=== PATIENT | female | born 1960 | race Asian ===

== ENCOUNTER 2018-06-02 21:31 | Emergency (ER) | payer OTHER ==
[~2018-06-02] VITALS: Ht 149.9 cm; Wt 74.8 kg
[2018-06-02] MEDS ORDERED: NORVASC2.5 M1 PO (21:58)
[2018-06-02 21:59] LABS: URINE BILIRUBIN NEGATIVE (Negative); URINE BLOOD NEGATIVE (Negative); URINE CLARITY CLEAR; URINE COLOR STRAW; URINE GLUCOSE-RANDOM 3+ (Negative); URINE KETONES NEGATIVE (Negative); URINE LEUKOCYTES-REFLEX NEGATIVE (Negative); URINE NITRITE-REFLEX NEGATIVE (Negative); URINE PROTEIN NEGATIVE (Negative); URINE UROBILINOGEN 0.2 E.U./dl (0.2-1.0)
[2018-06-02] MEDS ORDERED: CRESTOR10 MG PO (21:59)
[2018-06-02] MEDS ORDERED: PLAVIX 75 MG TA75 M1 PO (21:59)
[2018-06-02] MEDS ORDERED: PAXIL10 MG PO (22:00)
[2018-06-02] MEDS ORDERED: METFORMIN HCL500 MG PO (22:00)
[2018-06-02] MEDS ORDERED: PANTOPRAZOLE SO40 M1 PO (22:01)
[2018-06-02 22:27] LABS: HEMATOCRIT 29.1 % (37.0-47.0); MCHC 30.9 g/dL (28.0-37.0); MCV 71.2 fL (80.0-100.0); MPV 8.5 fl. (7.2-11.1); NUCLEATED RBCS 0 /100WBC; PLATELET COUNT* 376 thou/uL (150-400); RBC 4.08 mil/uL (4.20-5.00); RDW-CV 15.3 % (10.5-14.5); WBC 7.3 thou/uL (4.0-11.0)
[2018-06-02 22:33] LABS: CREATININE 0.9 mg/dL (0.6-1.3); POTASSIUM 4.2 mmol/L (3.5-5.1)
[2018-06-02 22:34] LABS: ABSOLUTE LYMPHOCYTES 1.8 thou/uL (0.8-5.3); ABSOLUTE MONOCYTES 0.4 thou/uL (0.0-1.2); ABSOLUTE NEUTROPHILS 4.9 thou/uL (1.6-8.1); LYMPHOCYTES 25.2 %; MONOCYTES 5.9 %; POLYS 66.8 %
[2018-06-02 22:35] LABS: ABSOLUTE BASOPHILS 0.1 thou/uL (0.0-0.2); ABSOLUTE EOSINOPHILS 0.1 thou/uL (0.0-0.7); EOSINOPHILS 1.1 %
[2018-06-02 22:37] LABS: ALBUMIN 3.7 g/dL (3.4-5.0); TOTAL BILIRUBIN 0.2 mg/dL (<0.1-1.0); TOTAL PROTEIN 7.9 g/dL (6.4-8.2)
[2018-06-02 23:08] LABS: ANISOCYTOSIS 1+; HYPOCHROMASIA 2+; MICROCYTES 1+; POLYCHROMASIA Occasional
[2018-06-03] MEDS ORDERED: NORCO 7.5-3251 EACH PO (00:05)
[2018-06-03 00:24] VITALS: BP 170/88
[2018-06-03] MEDS ORDERED: KEFLEX500 M1 PO (20:40)
[2018-06-03] MEDS ORDERED: GLUCOTROL5 MG PO (20:49)
[2018-06-03] MEDS ORDERED: TRAMADOL 50 MG50 MG PO (20:50)
[2018-06-03] MEDS ORDERED: ZOFRAN ODT4 MG PO (20:50)
== END 2018-06-03 00:30 | disposition home or self-care (01) ==
LOC: M.ERS 21:31
PROVIDERS: Emergency Medicine
DX: K31.89 Other diseases of stomach and duodenum (principal); E11.9 Type 2 diabetes mellitus without complications; Z95.5 Presence of coronary angioplasty implant and graft; Z88.2 Allergy status to sulfonamides

== ENCOUNTER 2018-06-03 17:51 | Emergency (ER) | payer OTHER ==
[~2018-06-03] VITALS: Ht 149.9 cm; Wt 79.4 kg
[~2018-06-03 17:51] MED LIST: CRESTOR10 MG PO; METFORMIN HCL500 MG PO; NORCO 7.5-3251 EACH PO; NORVASC2.5 M1 PO; PANTOPRAZOLE SO40 M1 PO; PAXIL10 MG PO; PLAVIX 75 MG TA75 M1 PO
[2018-06-03 18:34] LABS: ABSOLUTE BASOPHILS 0.1 thou/uL (0.0-0.2); ABSOLUTE LYMPHOCYTES 1.5 thou/uL (0.8-5.3); ABSOLUTE MONOCYTES 0.4 thou/uL (0.0-1.2); ABSOLUTE NEUTROPHILS 4.6 thou/uL (1.6-8.1); BASOPHILS 1.2 %; EOSINOPHILS 0.5 %; HEMATOCRIT 28.9 % (37.0-47.0); MCH 22.3 pg (26.0-34.0); MCHC 31.1 g/dL (28.0-37.0); MCV 71.6 fL (80.0-100.0); MONOCYTES 6.2 %; MPV 8.2 fl. (7.2-11.1); NUCLEATED RBCS 0 /100WBC; PLATELET COUNT* 352 thou/uL (150-400); POLYS 69.1 %; RBC 4.03 mil/uL (4.20-5.00); RDW-CV 15.1 % (10.5-14.5); WBC 6.7 thou/uL (4.0-11.0)
[2018-06-03 18:40] LABS: ANION GAP 8 mmol/L (7-16); BUN 9 mg/dL (7-18); CALCIUM 9.1 mg/dL (8.5-10.1); CHLORIDE 98 mmol/L (98-107); CO2 30 mmol/L (21-32); CREATININE 0.9 mg/dL (0.6-1.3); GLUCOSE 327 mg/dL (70-99); POTASSIUM 4.2 mmol/L (3.5-5.1); SODIUM 136 mmol/L (136-145)
[2018-06-03 18:48] LABS: ALBUMIN 3.8 g/dL (3.4-5.0); ALKALINE PHOSPHATASE 88 U/L (46-116); SGOT 13 U/L (15-37); SGPT 17 U/L (30-65); TOTAL BILIRUBIN 0.2 mg/dL (<0.1-1.0); TROPONIN-I LEVEL <0.06 ng/mL (<0.06)
[2018-06-03 18:52] LABS: ANISOCYTOSIS 1+; HYPOCHROMASIA 1+; MICROCYTES 1+; PLATELET ESTIMATE ADEQUATE
[2018-06-03 19:01] LABS: URINE BILIRUBIN NEGATIVE (Negative); URINE BLOOD NEGATIVE (Negative); URINE CLARITY CLEAR; URINE COLOR YELLOW; URINE GLUCOSE-RANDOM 3+ (Negative); URINE KETONES NEGATIVE (Negative); URINE LEUKOCYTES-REFLEX NEGATIVE (Negative); URINE NITRITE-REFLEX NEGATIVE (Negative); URINE PROTEIN NEGATIVE (Negative); URINE UROBILINOGEN 0.2 E.U./dl (0.2-1.0)
[2018-06-03] MEDS ORDERED: KEFLEX500 M1 PO (20:40)
[2018-06-03] MEDS ORDERED: GLUCOTROL5 MG PO (20:49)
[2018-06-03] MEDS ORDERED: TRAMADOL 50 MG50 MG PO (20:50)
[2018-06-03] MEDS ORDERED: ZOFRAN ODT4 MG PO (20:50)
[2018-06-03 21:09] VITALS: BP 147/78
--- NOTE | 2018-06-04 10:20 | EKG ---
[place] [address] ELECTROCARDIOGRAM REPORT Name: YANET WESTFALL Room: [facility] [place]#: [id number] Admission: 06/03/18 Attend Phys: Discharge: 06/03/18 Date of : 64 Report #: [id number] THIS REPORT FOR: //name// [facility] ED Test Date: 2018-06-03 Test Time: 18:56:59 Pat Name: YANET WESTFALL Department: Room: Gender: F Measurer Machine: CAROLYN : 1960 Requested By: Efren Patterson Order Number: [id number] MD: Abhi Loco Measurements Intervals [place] Rate: 82 P: 55 MS: 170 QRS: 27 QRSD: 80 T: 82 QT: 400 QTc: 468 Interpretive Statements Sinus rhythm No previous ECG available for comparison Electronically Signed On 06-04-2018 10:19:46 CDT by Abhi Loco [email or web address] <ELECTRONICALLY SIGNED> By: Abhi Loco MD, [facility] 06/04/18 1019 1856 1856 Abhi Loco MD, FACC /EPI
== END 2018-06-03 21:11 | disposition home or self-care (01) ==
LOC: M.ERS 17:51
PROVIDERS: Emergency Medicine Emergency Medical Services
DX: E11.65 Type 2 diabetes mellitus with hyperglycemia (principal); R11.0 Nausea; Z95.5 Presence of coronary angioplasty implant and graft

== ENCOUNTER 2018-06-12 00:04 | Emergency (ER) | payer OTHER ==
[~2018-06-12] VITALS: Ht 149.9 cm; Wt 75.0 kg
[~2018-06-12 00:04] MED LIST changes: +GLUCOTROL5 MG PO; +KEFLEX500 M1 PO; +TRAMADOL 50 MG50 MG PO; +ZOFRAN ODT4 MG PO
[2018-06-12 00:23] VITALS: BP 165/82
[2018-06-12 00:37] LABS: ABSOLUTE BASOPHILS 0.1 thou/uL (0.0-0.2); ABSOLUTE MONOCYTES 0.4 thou/uL (0.0-1.2); ABSOLUTE NEUTROPHILS 3.9 thou/uL (1.6-8.1); EOSINOPHILS 0.5 %; HEMATOCRIT 26.7 % (37.0-47.0); HEMOGLOBIN 8.2 gm/dL (12.0-15.0); LYMPHOCYTES 31.3 %; MCH 21.8 pg (26.0-34.0); MCHC 30.8 g/dL (28.0-37.0); MCV 70.7 fL (80.0-100.0); MONOCYTES 5.8 %; MPV 8.6 fl. (7.2-11.1); NUCLEATED RBCS 0 /100WBC; PLATELET COUNT* 280 thou/uL (150-400); POLYS 61.4 %; RBC 3.77 mil/uL (4.20-5.00); RDW-CV 15.6 % (10.5-14.5); WBC 6.4 thou/uL (4.0-11.0)
[2018-06-12 00:46] LABS: ANION GAP 6 mmol/L (7-16); BUN 12 mg/dL (7-18); CALCIUM 8.9 mg/dL (8.5-10.1); CHLORIDE 105 mmol/L (98-107); CO2 26 mmol/L (21-32); CREATININE 0.9 mg/dL (0.6-1.3); GLUCOSE 330 mg/dL (70-99); POTASSIUM 4.1 mmol/L (3.5-5.1); SODIUM 137 mmol/L (136-145)
[2018-06-12 00:58] LABS: ALBUMIN 3.2 g/dL (3.4-5.0); ALKALINE PHOSPHATASE 78 U/L (46-116); LIPASE 304 U/L (73-393); MAGNESIUM 1.6 mg/dL (1.8-2.4); NT-PRO BRAIN NAT PEPTIDE 59 pg/mL (<300); SGOT 9 U/L (15-37); SGPT 13 U/L (30-65); TOTAL BILIRUBIN 0.1 mg/dL (<0.1-1.0); TOTAL PROTEIN 7.1 g/dL (6.4-8.2); TROPONIN-I LEVEL <0.06 ng/mL (<0.06)
[2018-06-12 03:06] VITALS: BP 154/78
[2018-06-12 04:11] LABS: ANISOCYTOSIS 2+; HYPOCHROMASIA 2+; MICROCYTES 1+; POLYCHROMASIA 1+
--- NOTE | 2018-06-12 12:10 | EKG ---
[place] [address] ELECTROCARDIOGRAM REPORT Name: YANET WESTFALL Room: [place] [address] ADM IN .R.#: [id number] Admission: 06/12/18 Attend Phys: Shady Alba Discharge: Date of : 64 Report #: [id number] THIS REPORT FOR: //name// [facility] ED Test Date: 2018-06-12 Test Time: 00:17:49 Pat Name: YANET WESTFALL Department: Room: Gender: F Drafter Heating [employer] Ventilating: zayda brennan : 1960 Requested By: Efren Patterson Order Number: [id number] MD: Abhi Loco Measurements Intervals [place] Rate: 77 P: 49 [place]: 155 QRS: 23 QRSD: 80 T: 91 QT: 376 QTc: 426 Interpretive Statements Sinus rhythm Nonspecific T abnormalities, lateral leads Compared to ECG 06/03/2018 18:56:59 no change Electronically Signed On 06-12-2018 12:10:39 CDT by Abhi Loco [email or web address] <ELECTRONICALLY SIGNED> By: Abhi Loco MD, [facility] 06/12/18 1210 0017 0017 Abhi Loco MD, [facility] /EPI
== END 2018-06-12 02:55 | disposition left against medical advice (07) ==
LOC: M.ERS 00:04 → M.TBA-ER 02:55 → M.ERS 02:55 → M.TBA-ER 03:49 → M.ERS 03:49 → M.TBA-ER 05:58
PROVIDERS: Emergency Medicine Emergency Medical Services
DX: R07.9 Chest pain, unspecified (principal); E11.9 Type 2 diabetes mellitus without complications; Z95.5 Presence of coronary angioplasty implant and graft; Z88.2 Allergy status to sulfonamides

== ENCOUNTER 2018-06-12 13:43 | Inpatient (IN) | payer OTHER ==
[~2018-06-12] VITALS: Ht 149.9 cm; Wt 76.2 kg
[2018-06-12 13:48] VITALS: BP 142/72
[2018-06-12 14:52] LABS: ABSOLUTE BASOPHILS 0.1 thou/uL (0.0-0.2); ABSOLUTE EOSINOPHILS 0.1 thou/uL (0.0-0.7); ABSOLUTE LYMPHOCYTES 1.7 thou/uL (0.8-5.3); ABSOLUTE MONOCYTES 0.3 thou/uL (0.0-1.2); ABSOLUTE NEUTROPHILS 4.1 thou/uL (1.6-8.1); BASOPHILS 1.1 %; EOSINOPHILS 0.8 %; HEMATOCRIT 26.4 % (37.0-47.0); HEMOGLOBIN 8.3 gm/dL (12.0-15.0); MCH 22.4 pg (26.0-34.0); MCHC 31.6 g/dL (28.0-37.0); MCV 70.8 fL (80.0-100.0); MONOCYTES 5.5 %; MPV 9.3 fl. (7.2-11.1); NUCLEATED RBCS 0 /100WBC; PLATELET COUNT* 297 thou/uL (150-400); POLYS 65.6 %; RBC 3.73 mil/uL (4.20-5.00); RDW-CV 15.5 % (10.5-14.5); WBC 6.3 thou/uL (4.0-11.0)
[2018-06-12 14:54] LABS: URINE BILIRUBIN NEGATIVE (Negative); URINE BLOOD NEGATIVE (Negative); URINE CLARITY CLEAR; URINE COLOR YELLOW; URINE GLUCOSE-RANDOM NEGATIVE (Negative); URINE KETONES NEGATIVE (Negative); URINE LEUKOCYTES-REFLEX NEGATIVE (Negative); URINE NITRITE-REFLEX NEGATIVE (Negative); URINE PROTEIN NEGATIVE (Negative); URINE SPECIFIC GRAVITY 1.015 (1.005-1.030); URINE UROBILINOGEN 0.2 E.U./dl (0.2-1.0)
[2018-06-12 14:57] LABS: CREATININE 0.8 mg/dL (0.6-1.3); POTASSIUM 3.9 mmol/L (3.5-5.1)
[2018-06-12 15:02] LABS: ALBUMIN 3.2 g/dL (3.4-5.0); TOTAL BILIRUBIN 0.2 mg/dL (<0.1-1.0); TOTAL PROTEIN 7.1 g/dL (6.4-8.2)
[2018-06-12 15:36] LABS: APTT 24.7 Seconds (25.0-31.3); PROTIME 10.4 Seconds (9.20-11.50)
[2018-06-12 15:41] LABS: ANISOCYTOSIS 1+; HYPOCHROMASIA 2+; LARGE PLATELETS FEW; PLATELET ESTIMATE ADEQUATE
[2018-06-12 15:42] LABS: MICROCYTES 1+
--- NOTE | 2018-06-12 16:19 | NUR ---
PER DIRECTOR DIGITAL ADVERTISING, PICC NURSE DANNY RN, IS TO START IV WHEN PT ARRIVES TO FLOOR. PT GOING TO ROOM 308. PT STUCK MULTIPLE TIMES IN ED. UNABLE TO OBTAIN IV ACCESS AT THIS TIME.
[2018-06-12 16:48] LABS: % SATURATION 6 % (20-39); IRON 29 ug/dL (50-175)
[2018-06-12 17:11] VITALS: BP 125/63
[2018-06-12 17:34] VITALS: BP 150/80
--- NOTE | 2018-06-12 18:16 | NUR ---
PATIENT HAS BEEN ALERT AND ORINETED TODAY VERY PLEASANT. UP AD HUBERT IN ROOM. APPETITE HAS BEEN GOOD TODAY WITH NO COMPLAINTS OF PAIN. VITAL SIGNS HAVE BEEN ON ROOM AIR, PROVIDER AWARE AND ADJUSTED BLOOD PRESSURE MEDS. CALL LIGHT IS IN REACH, WILL CONTINUE TO MONITOR.
--- NOTE | 2018-06-12 18:25 | NUR ---
PATIENT CAME TO THE ER VIA CART IN STABLE CONDITION. VITAL SIGNS STABLE ON ROOM AIR. PATIENT IS VERY CONCERNED ABOUT DAUGHTER, ALSO A PATIENT, TO WHAT WILL HAPPEN WHEN DAUGHTER IS DISCHARGED. EXPLAINED TO PATIENT THAT PROBLEM WOULD BE DEALT AT THE TIME OF DISCHARGE TO TRY AND EASE SOME ANXIETY. ROOM ORIENTATION AND ADMISSION ASSESSMENT DONE, QUESTIONS ANSWERED FOR PATIENT.
[2018-06-12 20:30] VITALS: BP 143/62
[2018-06-13 04:49] LABS: HEMATOCRIT 26.2 % (37.0-47.0); HEMOGLOBIN 8.2 gm/dL (12.0-15.0); MCH 22.1 pg (26.0-34.0); MCHC 31.2 g/dL (28.0-37.0); MCV 70.9 fL (80.0-100.0); MPV 9.2 fl. (7.2-11.1); RBC 3.7 mil/uL (4.20-5.00); RDW-CV 15.8 % (10.5-14.5); WBC 6.4 thou/uL (4.0-11.0)
[2018-06-13 05:33] LABS: ALBUMIN 3.2 g/dL (3.4-5.0); CALCIUM 8.8 mg/dL (8.5-10.1); CREATININE 0.8 mg/dL (0.6-1.3); MAGNESIUM 1.8 mg/dL (1.8-2.4); POTASSIUM 4.2 mmol/L (3.5-5.1); TOTAL PROTEIN 6.6 g/dL (6.4-8.2)
[2018-06-13 05:56] LABS: TOTAL BILIRUBIN 0.1 mg/dL (<0.1-1.0)
--- NOTE | 2018-06-13 06:13 | NUR ---
PATIENT SLEPT MOST OF THE NIGHT. IV FLUIDS CONTINUE TO INFUSE AT 100 ML/HR. PATIENT HAD NO COMPLAINTS OF PAIN OR NAUSEA. PATIENT HAS BEEN NPO SINCE MIDNIGHT FOR EGD TODAY. WILL CONTINUE TO MONITOR.
[2018-06-13 08:40] VITALS: BP 143/62
[2018-06-13 08:45] VITALS: BP 137/63; BP 143/62
--- NOTE | 2018-06-13 12:45 | NUR ---
PATIENT ARRIVED BACK TO UNIT FROM PACU AT 1120. ALERT AND ORIENTED X 4. VITAL SIGNS STABLE ON ROOM AIR. IV PATENT AND SALINE LOCKED. PATIENT RESTING COMFORTABLY. CALL LIGHT WITHIN REACH. NURSING WILL CONTINUE TO MONITOR.
[2018-06-13 16:16] VITALS: BP 148/76
--- NOTE | 2018-06-13 17:37 | NUR ---
PATIENT ALERT AND ORIENTED X 4. VITAL SIGNS STABLE ON ROOM AIR. AFEBRILE. UP INDEPENDENTLY AND AMBULATING IN HALLWAY. IV PATENT WITH FLUIDS INFUSING. DENIES PAIN AND NAUSEA. TOLERATING HEART HEALTHY VEGETARIAN DIET. HOURLY ROUNDS MAINTAINED THROUGHOUT THE SHIFT. CALL LIGHT WITHIN REACH. NURSING WILL CONTINUE TO MONITOR.
[2018-06-14] VITALS: BP 144/69
--- NOTE | 2018-06-14 06:23 | NUR ---
PATIENT SLEPT MOST OF THE NIGHT. PATIENT WAS GIVEN FENTANYL FOR PAIN ONCE. PATIENT BECAME VERY DIZZY, NAUSEATED, AND SWEATY AFTERWARDS. PATIENT STATED SHE DID NOT WANT THAT MEDICINE AGAIN. PATIENT IS POSSIBLY GOING HOME TODAY. WILL CONTINUE TO MONITOR.
[2018-06-14 07:30] VITALS: BP 152/88
[2018-06-14 07:38] LABS: ABSOLUTE BASOPHILS 0.1 thou/uL (0.0-0.2); ABSOLUTE EOSINOPHILS 0.1 thou/uL (0.0-0.7); ABSOLUTE LYMPHOCYTES 1.6 thou/uL (0.8-5.3); ABSOLUTE MONOCYTES 0.3 thou/uL (0.0-1.2); ABSOLUTE NEUTROPHILS 3.5 thou/uL (1.6-8.1); BASOPHILS 1.1 %; HEMATOCRIT 28.4 % (37.0-47.0); HEMOGLOBIN 8.8 gm/dL (12.0-15.0); LYMPHOCYTES 29.3 %; MCH 21.9 pg (26.0-34.0); MCV 70.6 fL (80.0-100.0); MONOCYTES 6.1 %; MPV 8.3 fl. (7.2-11.1); NUCLEATED RBCS 0 /100WBC; PLATELET COUNT* 304 thou/uL (150-400); POLYS 62.5 %; RBC 4.02 mil/uL (4.20-5.00); RDW-CV 15.9 % (10.5-14.5); WBC 5.5 thou/uL (4.0-11.0)
[2018-06-14 07:44] LABS: CALCIUM 8.6 mg/dL (8.5-10.1); CREATININE 0.8 mg/dL (0.6-1.3); POTASSIUM 3.8 mmol/L (3.5-5.1)
[2018-06-14 09:15] LABS: PLATELET ESTIMATE ADEQUATE
[2018-06-14 09:16] LABS: HYPOCHROMASIA 1+; MICROCYTES 1+
[2018-06-14 09:17] LABS: ANISOCYTOSIS 1+; POIKILOCYTOSIS 1+
[2018-06-14 14:11] VITALS: BP 152/88
--- NOTE | 2018-06-14 15:00 | NUR ---
SW met with pt to complete assessment and discuss dc planning. Pt alert, oriented, visiting with her dtr. Pt plans to dc home today with dtr and does not express any dc needs or concerns.
--- NOTE | 2018-06-14 15:04 | NUR ---
PATIENT HAS BEEN ALERT AND ORIENTED TODAY, PLEASANT BUT ANXIOUS. STAYING IN DAUGHTERS ROOM TODAY. EXPLAINED THAT AFTER BEING DISCHARGED PATIENT COULD STAY WITH DAUGHTER IN 309. PATIENT CLEANED OUT BELONGINGS FROM ROOM AND HAS BEEN IN 309 SINCE THEN. DISCHARGE INSTRUCTIONS GIVEN AND QUESTIONS ANSWERED FOR PATIENT AND FAMILY. PATIENT IS IN WITH DAUGHTER WHO IS A PATIENT IN 309.
[2018-06-14 15:12] VITALS: BP 152/88
--- NOTE | 2018-06-25 09:08 | PATH ---
[address] [address] PATHOLOGY RPT PROCEDURE Name: CALVIN WESTFALLAVI Room: [address] IN M.R.#: [id number] Admission: 06/12/18 Date of : 64 Discharge: 06/14/18 Report #: [id number] Path Case #: [id number] [facility] Accession Number: [id number] . 01 Material submitted: . PART A: BIOPSY ULCERATED TUMOR MID BODY POSTERIOR WALL PART B: ANTRAL BIOPSY FOR H PYLORI . 01 Clinical history: . Preop DX: Anemia, abnormal CAT scan, abdominal pain Postop DX: Ulcerated mass mid body, posterior wall stomach . 02 Diagnosis: A. 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 . B. Antral biopsy for H. pylori: - Moderate chronic antral gastritis with few Helicobacter pylori organisms identified, negative for malignancy/dysplasia. [facility]/06/16/2018 . 02 Comment: HER2 assessment is pending on specimen A and will be the subject of an addendum report. Dr. Shin notified at approximately 1205 on 06/16/2018. Specimen A reviewed with Dr. Patrick Horton who agrees with the diagnosis. . (JENNIFER:pit 06/16/2018) . 02 Addendum: . Special studies report received from [facility], [address] [place] [address], [address], [place], [address], on case [id number], labeled with their number [id number], dated 06/21/2018. . Gastroesophageal Adenocarcinoma HER2 IHC Analysis . Specimen Site: Stomach, Adenocarcinoma, mid body posterior wall (biopsy) Specimen ID #: [id number] . HERCEPTEST (Gastric) Equivocal Score: 2+ Analysis: Manual . Time to Fixation (Cold Ischemic Time): Not Provided Duration of Fixation: Not Provided Type of Fixative: 10% [place] [address] PATHOLOGY RPT PROCEDURE Name: YANET WESTFALL Room: [address] DIS IN M.R.#: [id number] Admission: 06/12/18 Date of : 64 Discharge: 06/14/18 Report #: [id number] Path Case #: [id number] . Comments: Additional studies: Reflex HER2 by FISH will be reported separately. . . at [facility] Mandy Diggs M.D. Pathologist . Methodology: The HercepTest contains reagents required to complete a two-step immunocytochemical staining procedure for routinely processed, paraffin-embedded specimens. Following incubation with the primary rabbit antibody to human HER2 protein, this kit employs a zyels-qi-oyk Visualization Reagent based on dextran technology. This reagent consists of both secondary and goat anti-rabbit immunoglobulin molecules and horseradish peroxidase molecules linked to a common dextran polymer backbone. The enzymatic conversion of the subsequently added chromogen results in formation of a visible reaction product at the antigen site. The antibody is intended for in-vitro diagnostic use. . Intended Use: The HercepTest (DAKO) is a semi-quantitative immunocytochemical FDA-cleared assay to determine HER2 protein expression in formalin-fixed, paraffin embedded cancer tissue from patients with metastatic gastric or gastroesophageal junction adenocarcinoma. HercepTest is indicated as an aid in the assessment of gastric cancer patients for whom Herceptin (trastuzumab) treatment is being considered. Reference ranges for this test in cancer types other than gastrointestinal adenocarcinoma or breast carcinoma are not approved at this time. . . Disclaimer: This Test was performed by [employer]. at [address] [place] [address], [place]. . [facility] is a business unit of [employer]. a wholly-owned subsidiary of [employer]. . This assay has not been validated on decalcified tissues. Results should be interpreted with caution if this specimen was decalcified given the likelihood of false negativity on decalcified specimens. . Any image(s) that accompany this report is/are a liability claims representative image(s) only and should not be used to render a diagnosis. . This interpretation is contingent on the [place] [address] PATHOLOGY RPT PROCEDURE Name: YANET WESTFALL Room: [address] IN [place].Jennifer.#: [id number] Admission: 06/12/18 Date of : 64 Discharge: 06/14/18 Report #: [id number] Path Case #: [id number] information received. . For any special tests/stains performed, known positive cells or tissues are tested with each marker and examined to ensure positivity. Positive and negative internal controls, if present, react appropriately. . This analysis is an adjunct to the evaluation of the referring physician and does not represent a final diagnosis. . The immunohistochemistry tests performed at [facility]. were validated on tissue fixed in 10% neutral buffered formalin. The performance characteristics of the tests performed on tissue processed in other fixatives is not known. . HER2 testing at [employer] is performed in accordance with the guidelines of the 2016 updated publication "HER2 Testing and Clinical Decision Making in Gastroesophageal Adenocarcinoma". If the result is EQUIVOCAL (2+), the specimen should be additionally assessed by FISH or other LILLIAM method. . HER2 guidelines state that specimens should be rapidly placed in fixative, ideally within 1 hour (cold ischemic time/time to fixation) and for a minimum of 6 and a maximum of 72 hours. Prolonged cold ischemic time of greater than 1 hour or duration of fixation outside the recommended guideline of 6 to 72 hours may lead to false negative results. Results obtained on specimens that fall outside the recommended guidelines for cold ischemic time or duration of fixation should be interpreted with caution and consideration given to repeat testing using an alternate technology or repeat testing on a different specimen that meets the preanalytic guidelines for cold ischemic time and duration of fixation. . References: NIMISHA Combs, MICHAEL Loja, et al. HER2 Testing and Clinical Decision Making in Gastroesophageal Adenocarcinoma. Guideline from the College of [place] Pathologists, [place] Society for Clinical Pathology, and [place] Society of Clinical Oncology. Arch Pathol Lab Med. 2016 July Vol 140: 3087-3443. . Reference Ranges for Surgical Specimens 0 Negative No reactivity or membranous reactivity in < 10% of tumor cells 1+ Negative Faint/barely perceptible membranous reactivity in >/= 10% of tumor cells; cells are reactive only in part of their membrane 2+ Equivocal Weak to moderate complete, basolateral or lateral membranous reactivity in >/= 10% of tumor cells 3+ Positive Strong complete basolateral or lateral membranous reactivity in >/= 10% [place] [address] PATHOLOGY RPT PROCEDURE Name: YANET WESTFALL Room: [address] IN ..#: [id number] Admission: 06/12/18 Date of : 64 Discharge: 06/14/18 Report #: [id number] Path Case #: [id number] Reference Ranges for Biopsy Specimens 0 Negative No reactivity or no membranous reactivity in any tumor cell 1+ Negative Tumor cell cluster (>/= 5 neoplastic cells) with a faint/barely perceptible membranous reactivity irrespective of percentage of tumor cells stained 2+ Equivocal Tumor cells cluster (>/= 5 neoplastic cells) with a weak to moderate complete, basolateral or lateral membranous reactivity irrespective of percentage of tumor cells stained 3+ Positive Tumor cell cluster (>/= 5 neoplastic cells) with a strong complete, basolateral or lateral membranous reactivity irrespective of percentage of tumor cells stained . A copy of the complete report is on file. . Professional services performed by [employer]. at [facility] [address], [facility] [address], [place] [address]. Technical services performed by [employer]. at [facility] [address], [facility] [address], [place] [address]. . (AMJ 06/22/2018) . [facility]/06/22/2018 Addendum Electronically Signed by Niles Breen MD, Pathologist Addendum #2: Special studies report received from [facility], [address] [place] [address], [address], [address], on case [id number], labeled with their number [id number], dated 06/24/2018. . Fluorescence in situ Hybridization (FISH) Report HER2/GARCIA-17 Dual-Probe (Gastroesophageal Cancer) . Result: Negative/Not Amplified HER2/GARCIA-17 Ratio: 1.2 . Indication for Study: Adenocarcinoma . Specimen Site/Type: Mid Body Posterior Wall Tissue . Fixative: 10% Neutral Buffered Formalin . Time to Fixation: Not Provided . Duration of Fixation: Not Provided . HER2 FISH ANALYSIS Number of tumor cells counted: 20 [place] [address] PATHOLOGY RPT PROCEDURE Name: YANET WESTFALL Room: [address] IN M.R.#: [id number] Admission: 06/12/18 Date of : 64 Discharge: 06/14/18 Report #: [id number] Path Case #: [id number] Number of observers: 2 Avg number of HER2 Signals/Nucleus: 3.7 Avg number of GARCIA-17 Signals/Nucleus: 3.0 Ratio of average HER2/GARCIA-17: 1.2 . Comments: Although specific fixation guidelines for HER2 testing in gastroesophageal carcinoma have not yet been established, it is good practice to follow the approach used for HER2 by FISH analysis suggested by the ASCO/CAP guidelines of 2013 for breast cancer. Tissue samples should be fixed for a minimum of 6 and a maximum of 72 hours. The time from biopsy/excision to fixation in formalin (cold ischemic time) should be less than an hour. Time to fixation (cold ischemic time) greater than 1 hour should be interpreted with caution. HER2 testing, mainly HER2 by FISH, is particularly vulnerable since excessive cold ischemic time results in preferential loss of HER2 probe signals that may lead to negative results. . See report [id number] for further information. . Reviewed and electronically signed by Bradley Ibarra M.D. on 06/24/2018 at [facility]. Bradley Ibarra M.D. . . Methodology: A FDA approved DAKOr HER2 IQFISH pharmDXT (HER2/GARCIA-17 DNA Probe Kit) was used for the assessment of HER2 gene amplification status. The FISH analysis was performed on areas of invasive tumor cells that were defined by a pathologist from a corresponding H/E slide. A minimum of twenty invasive tumor nuclei were analyzed by two technologists. For each nucleus, the number of HER2 signals and the number of centromere 17 (GARCIA-17) signals were recorded. Enumeration results are reported as a ratio of the total HER2 hybridization signals to GARCIA-17 hybridization signals. An average number of HER2 signals/nucleus and an average number of centromere 17 signals/nucleus were also recorded. If the HER2/GARCIA-17 ratio is >/=2, the HER2 gene status is Amplified/Positive. If the HER2/GARCIA-17 ratio is <2, the HER2 gene status is Non-Amplified/Negative. If results are at or near the cut off (1.8-2.2), an additional 40 nuclei are counted and the ratio for 60 nuclei is recalculated. A HER2/GARCIA-17 ratio of 1.8-2.2 should be interpreted with caution. . HER2-POSITIVE HER2-NEGATIVE INDETERMINATE INDETERMINATE (AMPLIFIED) (NOT AMPLIFIED) SCORING CRITERIA HER2/GARCIA-17 ratio HER2/GARCIA-17 ratio Technical issues >/= < prevent assay from being conclusive (e.g., issues with controls, specimen [place] [address] PATHOLOGY RPT PROCEDURE Name: YANET WESTFALL Room: [address] IN [facility].#: [id number] Admission: 06/12/18 Date of : 64 Discharge: 06/14/18 Report #: [id number] Path Case #: [id number] or analytic testing failure) Assay must be repeated before diagnosis can be rendered . Specimen handling: Tissue samples should be preserved in 10% neutral buffered formalin for 18-24 hours per FDA approved DAKO HER2 IQDFISH pharmDX. Extended fixation time might increase the incubation time required for Pepsin digestion. See information about fixation times under the general comment portion of the report. . Intended Use: HER2 IQFISH pharmDXT is a direct fluorescence in situ hybridization (FISH) assay designed to quantitatively determine HER2 gene amplification on formalin-fixed, paraffin-embedded (FFPE) specimens from patients with metastatic gastric or gastroesophageal junction adenocarcinoma. HER2 IQFISH pharmDXT is indicated as an aid in the assessment of gastric cancer patients for whom Herceptinr (Trastuzumab) treatment is being considered. . Reference: Randa Narayan et al. Trastuzurnab in combination with chemotherapy versus chemotherapy alone for treatment of HER2-positive advanced gastric or gastro-esophageal junction cancer (ToGA): a phase open-label randomized controlled trial. Lancet 2010:376:687-97. . DAKO kit: Histology FISH Accessory kit code K5799 . Disclaimer This Test was performed by [facility]. at [address] [place] [address]. [facility] is a business unit of [facility] a wholly-owned subsidiary of [employer]. . . This assay has not been validated on decalcified tissues. Results should be interpreted with caution if this specimen was decalcified given the likelihood of false negativity on decalcified specimens. . Any image(s) that accompany this report is/are a liability claims representative image(s) only and should not be used to render a diagnosis. . A copy of the complete report is on file. . Professional services performed by [facility]. at [address] [place] [address]. Technical services performed by [employer]. at [address] [place] [address] PATHOLOGY RPT PROCEDURE Name: MALOUYANET Room: [address] DIS IN M.R.#: [id number] Admission: 06/12/18 Date of : 64 Discharge: 06/14/18 Report #: [id number] Path Case #: [id number]. . (AMJ 06/24/2018) . [facility]/06/24/2018 Addendum Electronically Signed by Niles Breen MD, Pathologist . 02 Electronically signed: . Niles Breen MD, Pathologist NPI- [id number] . 01 Gross description: . A. Received in formalin labeled "Yanet Westfall, biopsy ulcerated tumor mid body posterior wall," is a 1.0 x 0.9 x 0.3 cm aggregate of hayes-brown soft tissue fragments. The specimen is submitted entirely in cassette A1. . B. Received in formalin labeled "MalouYanet, antral biopsy for H. pylori," are three segments of hayes soft tissue measuring 0.4 x 0.4 x 0.3 cm in aggregate dimensions and ranging from 0.2 to 0.4 cm in maximum dimension. The specimen is submitted entirely in cassette B1. (DAC; 06/15/2018) XDC/XDC . 02 Pathologist provided ICD-10: C16.8, K29.50, B96.81 . 02 CPT . 428219, 827941 Specimen Comment: A courtesy copy of this report has been sent to Specimen Comment: [phone], . Specimen Comment: Report sent to / DR JAY Specimen Comment: A duplicate report has been generated due to demographic updates. Performed at: [address], [place] [address] MD Patrick Padgett MD Phone: [phone] Performed at: 02 [facility] [address], [place], [place] [address] MD Niles Breen MD Phone: [phone]
--- NOTE | 2018-06-28 12:22 | CON ---
[address] [address] CONSULTATION Name: CALVIN WESTFALLAVI Room: [address] IN M.R.#: [id number] Admission: 06/12/18 Attend Phys: Quincy Zepeda, Discharge: 06/14/18 Date of : 64 Report #: [id number] THIS REPORT FOR: //name// CC: VERITO TAMEZ Physician staff QUINCY Zepeda DATE OF SERVICE: 06/14/2018 REFERRING PHYSICIAN: Dr. Quincy Zepeda REASON FOR CONSULTATION: ____ IMPRESSION: 1. Mild epigastric pain with abnormal CAT scan suggesting possible mid body gastric mass -- evaluate for benign versus malignant cause of the same. 2. Iron-deficiency anemia of uncertain etiology. 3. Coronary artery disease with previous stent being placed in 2016 and the patient being maintained on chronic Plavix. 4. Hypertension. 5. Diabetes. RECOMMENDATIONS: Given the patient's endoscopic findings and the fact that she has evidence for what appears to be iron-deficiency anemia, I recommended we proceed with upper endoscopy today and we will make further recommendations thereafter. I have discussed these plans with the patient as well and she is agreeable to the same. HISTORY OF PRESENT ILLNESS: The patient is a pleasant 57-year-old Cym[place] female who presented to Emergency Room on the with recurrent complaints of abdominal pain. She had similar type problems earlier in the month and underwent CT scan of the abdomen and pelvis, which suggested there may be some thickening of her gastric body, but she was going to [place] and did not wish to do anything. She now came back to the hospital because she has had persistent pain. She denied any history dysphagia, odynophagia, chronic reflux or any problem with her appetite. She denies any weight loss. She has not had any black stools, tarry stools or any blood in her stools. She is not taking any anti-inflammatories. She has history of coronary artery disease with placement of a stent back in 2015 at [facility]. She has never undergone previous studies of her upper and lower GI tract in the past. She is admitted to the hospital for further evaluation and treatment. ALLERGIES: AMOXICILLIN and SULFA. MEDICATIONS: Include amlodipine, clopidogrel, rosuvastatin, paroxetine, [place] [address] CONSULTATION Name: YANET WESTFALL Room: [address]#: [id number] Admission: 06/12/18 Attend Phys: Quincy Zepeda, Discharge: 06/14/18 Date of : 64 Report #: [id number] metformin, hydrocodone, glipizide and tramadol. PAST MEDICAL HISTORY: Includes coronary artery disease, previous hypertension, diabetes and coronary artery disease with stent placement in the past. SOCIAL HISTORY: The patient is . Does not smoke or drink. FAMILY HISTORY: Remarkable for kidney cancer. PHYSICAL EXAMINATION: GENERAL: Pleasant 57-year-old white female who is awake and alert. CARDIOPULMONARY: Revealed a regular rate and rhythm. LUNGS: Clear. ABDOMEN: Soft and I could not really appreciate any organomegaly or masses. LABORATORY DATA: From the revealed a white count of 5.5, hemoglobin 8.8, platelet count 304,000, MCV is 70.6 and RDW is 15.9. Her INR is 1.0. Her sodium is 137, potassium 3.8, chloride 103, bicarbonate is 25. Her BUN is 8, creatinine is 0.8. Her GFR is 74. Bilirubin is 0.1, alkaline phosphatase is 61, AST is 12, ALT is 12. Her albumin is 3.2. Her ferritin is only 8. B12 level 216. Iron saturation is 6%. Abdominal ultrasound performed on the was unremarkable. CT scan of the chest, the upper abdomen was negative for pulmonary embolus and CT scan performed on 06/02/2018 revealed a gastric mass with both irregular wall thickening and adjacent soft tissue mass concerning for local adenopathy or tumor extension. DISCUSSION: At the present time, the patient does not have a heck of lot of symptoms, but she is definitely anemic. She is in need of endoscopic evaluation of her upper GI tract first. We will proceed with the same. Further recommendations thereafter. <ELECTRONICALLY SIGNED> By: Jerrod Shin DO 06/28/18 1222 1552 0045Jerrod Shin DO /nt
== END 2018-06-14 15:15 | disposition home or self-care (01) | DRG 376 ==
LOC: M.ERS 13:43 → M.3W 15:41 → M.TBA-ER 15:41 → M.3W 17:04
PROVIDERS: Internal Medicine Gastroenterology; Personal Emergency Response Attendant; Surgery; ADMIT Family Medicine
PROC: 0DB68ZX Excision of Stomach, Via Natural or Artificial Opening Endoscopic, Diagnostic (ICD-10-PCS; principal; 2018-06-14)
DX: C16.6 Malignant neoplasm of greater curvature of stomach, unspecified (principal); E11.9 Type 2 diabetes mellitus without complications; C16.8 Malignant neoplasm of overlapping sites of stomach; K31.9 Disease of stomach and duodenum, unspecified; E78.5 Hyperlipidemia, unspecified; I10 Essential (primary) hypertension; D50.0 Iron deficiency anemia secondary to blood loss (chronic); I25.10 Atherosclerotic heart disease of native coronary artery without angina pectoris; E66.9 Obesity, unspecified; Z68.33 Body mass index [BMI] 33.0-33.9, adult; Z23 Encounter for immunization; Z98.890 Other specified postprocedural states; Z95.5 Presence of coronary angioplasty implant and graft; Z88.1 Allergy status to other antibiotic agents; Z88.2 Allergy status to sulfonamides; Z79.899 Other long term (current) drug therapy

== ENCOUNTER 2018-07-15 15:20 | Emergency (ER) | payer OTHER ==
[~2018-07-15] VITALS: Ht 149.9 cm; Wt 75.0 kg
--- NOTE | ~2018-07-15 | EKG ---
[place] [address] ELECTROCARDIOGRAM REPORT Name: CALVIN WESTFALLAVI [id number] Admission: 07/15/18 Attend Phys: Discharge: 07/15/18 Date of : 64 Report #: [id number] THIS REPORT FOR: //name// [facility] ED Test Date: 2018-07-23 Test Time: 18:48:29 Pat Name: YANET WESTFALL Department: Room: Gender: F Rivet Sorter: KERLINE : 1960 Requested By: Marleni Dennis Order Number: [id number] MD: Measurements Intervals [place] Rate: 86 P: 51 UT: 153 QRS: 27 QRSD: 84 T: 65 QT: 374 QTc: 448 Interpretive Statements Sinus rhythm Compared to ECG 07/15/2018 16:07:57 No significant changes [email or web address] By: 47 184 Epiphany MD Ronda /EPI
[2018-07-15 15:51] LABS: ABSOLUTE BASOPHILS 0.1 thou/uL (0.0-0.2); ABSOLUTE EOSINOPHILS 0.1 thou/uL (0.0-0.7); ABSOLUTE LYMPHOCYTES 1.5 thou/uL (0.8-5.3); ABSOLUTE MONOCYTES 0.4 thou/uL (0.0-1.2); ABSOLUTE NEUTROPHILS 5.5 thou/uL (1.6-8.1); BASOPHILS 0.8 %; EOSINOPHILS 0.9 %; HEMATOCRIT 33.9 % (37.0-47.0); HEMOGLOBIN 10.6 gm/dL (12.0-15.0); MCH 24.1 pg (26.0-34.0); MCHC 31.4 g/dL (28.0-37.0); MCV 76.8 fL (80.0-100.0); MONOCYTES 4.8 %; MPV 8.5 fl. (7.2-11.1); NUCLEATED RBCS 0 /100WBC; PLATELET COUNT* 345 thou/uL (150-400); POLYS 73.5 %; RBC 4.41 mil/uL (4.20-5.00); RDW-CV 24.6 % (10.5-14.5); WBC 7.5 thou/uL (4.0-11.0)
[2018-07-15 16:00] LABS: CALCIUM 8.9 mg/dL (8.5-10.1); CREATININE 0.7 mg/dL (0.6-1.3); POTASSIUM 3.1 mmol/L (3.5-5.1)
[2018-07-15 16:07] LABS: ALBUMIN 3.5 g/dL (3.4-5.0); TOTAL BILIRUBIN 0.2 mg/dL (<0.1-1.0); TOTAL PROTEIN 7.6 g/dL (6.4-8.2)
[2018-07-15 16:09] LABS: LIPASE 156 U/L (73-393); TROPONIN-I LEVEL <0.06 ng/mL (<0.06)
[2018-07-15 16:24] LABS: ANISOCYTOSIS 1+; HYPOCHROMASIA 1+; PLATELET ESTIMATE ADEQUATE
[2018-07-15 16:25] LABS: MICROCYTES 1+
[2018-07-15 17:05] LABS: URINE BILIRUBIN NEGATIVE (Negative); URINE BLOOD NEGATIVE (Negative); URINE CLARITY CLEAR; URINE COLOR YELLOW; URINE GLUCOSE-RANDOM NEGATIVE (Negative); URINE KETONES NEGATIVE (Negative); URINE LEUKOCYTES-REFLEX NEGATIVE (Negative); URINE NITRITE-REFLEX NEGATIVE (Negative); URINE PROTEIN NEGATIVE (Negative); URINE SPECIFIC GRAVITY <= 1.005 (1.005-1.030); URINE UROBILINOGEN 0.2 E.U./dl (0.2-1.0)
[2018-07-15 18:12] VITALS: BP 153/91
--- NOTE | 2018-07-16 12:32 | EKG ---
[place] [address] ELECTROCARDIOGRAM REPORT Name: YANET WESTFALL [facility] [id number] Admission: 07/15/18 Attend Phys: Discharge: 07/15/18 Date of : 64 Report #: [id number] THIS REPORT FOR: //name// [facility] ED Test Date: 2018-07-15 Test Time: 16:07:57 Pat Name: YANET WESTFALL Department: Room: Gender: F Lead Generation Marketing Manager: Lisa MARTE : 1960 Requested By: Azael Jonas Order Number: [id number] MD: Ata Hernandez Measurements Intervals [place] Rate: 80 P: 41 ND: 153 QRS: 25 QRSD: 84 T: 77 QT: 391 QTc: 451 Interpretive Statements Sinus rhythm Compared to ECG 06/12/2018 00:17:49 T-wave abnormality no longer present Electronically Signed On 07-16-2018 12:32:31 [employer] SPECIALIST by Ata Hernandez [email or web address] <ELECTRONICALLY SIGNED> By: Ata Hernandez MD, [facility] 07/16/18 1232 [id number] 160 Ata Hernandez MD, FAC /EPI
== END 2018-07-15 18:14 | disposition home or self-care (01) ==
LOC: M.ERS 15:20
PROVIDERS: Family Medicine; Physician Assistant
DX: R11.2 Nausea with vomiting, unspecified (principal); R10.13 Epigastric pain; E11.9 Type 2 diabetes mellitus without complications; Z88.1 Allergy status to other antibiotic agents; Z88.2 Allergy status to sulfonamides; Z95.5 Presence of coronary angioplasty implant and graft

== ENCOUNTER 2018-07-23 17:31 | Emergency (ER) | payer OTHER ==
[~2018-07-23] VITALS: Ht 149.9 cm; Wt 75.0 kg
[2018-07-23 18:08] LABS: URINE BILIRUBIN NEGATIVE (Negative); URINE BLOOD TRACE (Negative); URINE CLARITY CLEAR; URINE COLOR YELLOW; URINE GLUCOSE-RANDOM 3+ (Negative); URINE KETONES TRACE (Negative); URINE LEUKOCYTES NEGATIVE (Negative); URINE NITRITE NEGATIVE (Negative); URINE PROTEIN TRACE (Negative); URINE SPECIFIC GRAVITY >= 1.030 (1.005-1.030); URINE UROBILINOGEN 0.2 E.U./dl (0.2-1.0)
[2018-07-23 18:17] LABS: AMP/METHAMP Negative (Negative); BARBITURATES Negative (Negative); BENZODIAZEPINES Negative (Negative); COCAINE Negative (Negative); METHADONE Negative (Negative); OPIATES Negative (Negative); PCP Negative (Negative); THC Negative (Negative)
[2018-07-23 18:20] LABS: ABSOLUTE LYMPHOCYTES 1.9 thou/uL (0.8-5.3); ABSOLUTE MONOCYTES 0.1 thou/uL (0.0-1.2); ABSOLUTE NEUTROPHILS 4.9 thou/uL (1.6-8.1); BASOPHILS 0.4 %; EOSINOPHILS 0.2 %; HEMATOCRIT 29.7 % (37.0-47.0); HEMOGLOBIN 9.4 gm/dL (12.0-15.0); LYMPHOCYTES 27.4 %; MCH 24.6 pg (26.0-34.0); MCHC 31.7 g/dL (28.0-37.0); MCV 77.7 fL (80.0-100.0); MONOCYTES 1.4 %; MPV 8.7 fl. (7.2-11.1); NUCLEATED RBCS 0 /100WBC; PLATELET COUNT* 288 thou/uL (150-400); POLYS 70.6 %; RBC 3.82 mil/uL (4.20-5.00); RDW-CV 24.5 % (10.5-14.5); WBC 6.9 thou/uL (4.0-11.0)
[2018-07-23 18:28] LABS: ANION GAP 10 mmol/L (7-16); BUN 17 mg/dL (7-18); CALCIUM 8.7 mg/dL (8.5-10.1); CHLORIDE 99 mmol/L (98-107); CO2 27 mmol/L (21-32); CREATININE 0.8 mg/dL (0.6-1.3); GLUCOSE 306 mg/dL (70-99); POTASSIUM 3.5 mmol/L (3.5-5.1); SODIUM 136 mmol/L (136-145)
[2018-07-23 18:30] LABS: INR 0.9; PROTIME 9.7 Seconds (9.20-11.50)
[2018-07-23 18:35] LABS: ALBUMIN 3.2 g/dL (3.4-5.0); ALKALINE PHOSPHATASE 89 U/L (46-116); SGOT 10 U/L (15-37); SGPT 16 U/L (30-65); TOTAL BILIRUBIN 0.2 mg/dL (<0.1-1.0); TOTAL PROTEIN 7.1 g/dL (6.4-8.2); TROPONIN-I LEVEL <0.06 ng/mL (<0.06)
[2018-07-23 18:59] LABS: PLATELET ESTIMATE ADEQUATE
[2018-07-23 21:47] VITALS: BP 147/82
== END 2018-07-23 21:47 | disposition home or self-care (01) ==
LOC: M.ERS 17:31
PROVIDERS: Nurse Practitioner Family
DX: E86.0 Dehydration (principal); E11.9 Type 2 diabetes mellitus without complications; Z95.5 Presence of coronary angioplasty implant and graft; Z88.1 Allergy status to other antibiotic agents; Z88.2 Allergy status to sulfonamides; Z79.899 Other long term (current) drug therapy